=== PATIENT | male | born 1975 | race Caucasian/White ===

== ENCOUNTER 2016-10-07 10:32 | Inpatient (IN) | payer MEDICAID ==
[2016-10-07] MEDS ORDERED: fentaNYL 100 MCG/2 ML INJ IVP ONE (10:57)
--- NOTE | 2016-10-07 11:34 | EDPHY ---
H & P Stated Complaint: Right ankle injury Source: Patient, Family Exam Limitations: No limitations - Personal History Current Tetanus Diphtheria and Acellular Pertussis (TDAP): Yes - Medical/Surgical History Hx Asthma: No Hx Chronic Respiratory Disease: No Hx Diabetes: No Hx Cardiac Disease: No Hx Renal Disease: No Hx Cirrhosis: No Hx Alcoholism: No Hx HIV/AIDS: No Hx Splenectomy or Spleen Trauma: No Other PMH: Denies. - Social History Smoking Status: Never smoked HPI/ROS: CHIEF COMPLAINT: Right ankle injury, fall HISTORY OF PRESENT ILLNESS: Patient was [place] [employer] in [facility]. He says that he was running when he slipped and fell awkwardly. He not felt a sudden onset of pain in the right distal murphy and ankle. It is severe, 10/10 pain. Does not radiate. No numbness or tingling. No pain in the right foot or heel. No pain in the right knee or hip. Unable to bear weight due to the pain. EMS evaluated him, placed him in a splint and transported him. He was seen shortly after time arrival. He has no head or neck injury. No chest or back pain. No abdominal pain. No injuries to the left lower extremity or either arm. No other associated complaints or modifying factors. NPO: Coffee and light breakfast at 7:30 a.m. Social history: Lives in [place], [place]. Here for a [employer] festival. PRIOR ORTHO INJURIES: Remotely when he was young ESTABLISHED ORTHOPEDIST: None REVIEW OF SYSTEMS: Ten systems reviewed and are negative unless otherwise noted in the HPI EXAMINATION General Appearance: Alert, no distress Cardiovascular: Pulses normal throughout. Symmetric radial and DP pulses are 2 +. Brisk cap refill Neurological: A&O, sensory symmetric, strength symmetric. Normal sensation of the foot. Normal proprioception of the great toe. No footdrop. Skin: Warm and dry, no rash. No lacerations. No lesions or open appearance of the fractures. Extremities: Significant tenderness of the right distal murphy and ankle. There is no tenderness of the right midfoot or right calcaneus. No tenderness of the right knee or hip. Range of motion of the ankle not tested due to pain and deformity. Range of motion of the right hip is intact but difficult to range. Psychiatric: Mood and affect normal DIFFERENTIAL DIAGNOSES: Including but not limited to tib-fib fracture, sprain, trimalleolar fracture, bimalleolar fracture, dislocation MDM: 11:30 a.m. Distal tibial fracture that is closed in addition to a bimalleolar fracture that is also closed. Neurovascular intact with significant pain. I have consult Orthopedics. I discussed the case with Dr. Blake. He will evaluate the x-rays and return my phone call shortly. Patient remains neurovascular intact for will place a posterior splint with stirrup for stability. 12:[address] Blake has requested CT scans of the lower extremity. 12:30 p.m. I have re-evaluated the patient. He remains neurovascular intact and in a splint. CT scan are pending at this time. 1:30 p.m. Patient re-evaluated. Remains neurovascular intact. Pain persists but no acute complaints. 2:40 p.m. Patient has been evaluated by Dr. Blake. The plan is for surgical intervention and admission to his service for further care. He is admitted in stable condition. He is neurovascular intact with a splint in place on the right lower extremity. ED Precautions: Worsening pain. Erythema, edema, cyanosis, pallor, paresthesia or anesthesia. SUPERVISION: Patient was evaluated in conjunction with the supervising physician. Please see their note for details. Orthopedic consultation by telephone (Jeff García) Constitutional: Initial Vital Signs Temperature (C) 36.9 C 10/07/16 10:40 Heart Rate 58 L 10/07/16 10:40 Respiratory Rate 16 10/07/16 10:40 Blood Pressure 117/82 H 10/07/16 10:40 O2 Sat (%) 93 10/07/16 10:40 O2 Delivery Mode Nasal Cannula O2 (L/minute) 2 Allergies/Adverse Reactions: No Known Allergies Allergy (Verified 10/07/16 14:33) Home Medications: Medication Instructions Recorded Ibuprofen [Motrin (*)] 600 mg PO Q6H PRN 10/07/16 Medical Decision Making - Diagnostics Imaging Results: Imaging Impressions Ankle X-Ray 10/07/16 10:44 Impression: 1. Oblique fracture distal tibial shaft with mild displacement and angulation. 2. Complex posterior malleolar fracture distal tibia as well as rotated fracture fragment suspected off the anterior inferior corner of the tibial plafond . 3. Oblique fracture distal fibular shaft with dorsal angulation suspected. If indicated, consider CT imaging to better characterize the anatomic relations of the fractures. Tibia/Fibula X-Ray 10/07/16 10:52 Impression: 1. Oblique fracture distal tibial shaft with mild displacement and angulation. 2. Complex posterior malleolar fracture distal tibia as well as rotated fracture fragment suspected off the anterior inferior corner of the tibial plafond . 3. Oblique fracture distal fibular shaft with dorsal angulation suspected. If indicated, consider CT imaging to better characterize the anatomic relations of the fractures. Extremity CT 10/07/16 11:53 Impression: Complex fractures of the distal tibia and fibula as detailed above. Three-D images reconstructed also offered valuable visualization of the extent of the fractures. ED Course/Re-evaluation: I did not see this patient while he was in the emergency department. However his care was discussed with the PA while the patient was in the department. I agree with treatment plan and management (Maicol Cooper) - Data Points Laboratory Results: Laboratory Results 10/07/16 10:45 10/07/16 10:45 10/07/16 10/07/16 10:45 10:45 WBC 4.38 10^3/uL 10^3/uL (3.80-9.50) RBC 5.02 10^6/uL 10^6/uL (4.40-6.38) Hgb 15.2 g/dL g/dL (13.7-17.5) Hct 44.7 % % (40.0-51.0) MCV 89.0 fL fL (81.5-99.8) MCH 30.3 pg pg (27.9-34.1) MCHC 34.0 g/dL g/dL (32.4-36.7) RDW 12.6 % % (11.5-15.2) Plt Count 213 10^3/uL 10^3/uL (150-400) Sodium 141 mEq/L mEq/L (134-144) Potassium 4.3 mEq/L mEq/L (3.5-5.2) Chloride 107 mEq/L mEq/L (97-110) Carbon Dioxide 23 mEq/l mEq/l (22-31) Anion Gap 11 mEq/L mEq/L (8-16) BUN 24 mg/dL H mg/dL (7-23) Creatinine 0.9 mg/dL mg/dL (0.7-1.3) Estimated GFR > 60 Glucose 94 mg/dL mg/dL (70-100) Calcium 9.5 mg/dL mg/dL (8.5-10.4) Medications Given: Discontinued Medications Fentanyl (Sublimaze) 100 mcg IVP EDNOW ONE Stop: 10/07/16 10:58 Last Admin: 10/07/16 11:01 Dose: 100 mcg Hydromorphone HCl (Dilaudid) 1 mg IVP EDNOW ONE Stop: 10/07/16 11:54 Last Admin: 10/07/16 11:57 Dose: 1 mg Hydromorphone HCl (Dilaudid) 0.5 mg IVP EDNOW ONE Stop: 10/07/16 14:36 Last Admin: 10/07/16 14:38 Dose: 0.5 mg Departure - Departure Disposition: [facility] Inpatient Acute Clinical Impression: Closed tibial fracture Qualifiers: Encounter type: initial encounter Tibia location: shaft Fracture morphology: segmental Fracture alignment: displaced Laterality: right Qualified Code(s): S82.261A - Displaced segmental fracture of shaft of right tibia, initial encounter for closed fracture Bimalleolar ankle fracture Qualifiers: Encounter type: initial encounter Fracture type: closed Laterality: right Qualified Code(s): S82.841A - Displaced bimalleolar fracture of right lower leg , initial encounter for closed fracture Condition: Good
[2016-10-07] MEDS ORDERED: HYDROmorphONE/DILAUDID 1 MG/ML SYR IVP ONE ×2 (11:53→14:35)
[2016-10-07] MEDS ORDERED: HYDROmorphONE/DILAUDID 1 MG/ML SYR ONE (14:35)
[2016-10-07 15:41] LABS: HEMATOCRIT 44.7 % (40.0-51.0); HEMOGLOBIN 15.2 g/dL (13.7-17.5); MEAN CELL HEMOGLOBIN 30.3 pg (27.9-34.1); RED BLOOD CELL COUNT 5.02 10^6/uL (4.40-6.38); RED CELL DISTRIBUTION WIDTH 12.6 % (11.5-15.2)
--- NOTE | 2016-10-07 15:45 | PDGENHP ---
History and Physical - Chief Complaint Right ankle and leg pain - History of Present Illness 40y M ariana was at the [employer] festival and was running with his tarp to get a sitting place for the concert when he slippe don the wet grass this morning and twisted his right leg awkwardly. He had immediate pain and was unable to bear weight. He was brought to the ED at [facility] where I was consulted by the ED (Ricky) to see him. He denies any open wound and feels all his toes. History Information - Allergies/Home Medication List Allergies/Adverse Reactions: No Known Allergies Allergy (Verified 10/07/16 14:33) Home Medications: Ibuprofen [Motrin (*)] 600 mg PO Q6H PRN 10/07/16 [Last Taken Unknown] I have personally reviewed and updated: family history, medical history, social history, surgical history - Past Medical History no pertinent PMH - Surgical History Reports: no pertinent surgical hx - Family History Positive for: non-pertinent - Social History Smoking Status: Never smoked Tobacco Use: Other (None) Alcohol Use: Occasionally Drug Use: None Review of Systems ROS: 10pt was reviewed & negative except for what was stated in HPI & below Physical Exam Temp Pulse Resp BP Pulse Ox 36.6 C 49 L 16 129/87 H 99 10/07/16 14:45 10/07/16 14:45 10/07/16 14:45 10/07/16 14:45 10/07/16 14:45 O2 (L/minute) 2 Constitutional: no apparent distress Ears, Nose, Mouth, Throat: hearing normal Cardiovascular: regular rate and rhythym, edema (Mild RLE edema) Peripheral Pulses: 2+: dorsalis-pedis (R) Skin: other (No open wounds) Musculoskeletal: other (TTP at midshaft tibia) Neurologic: AAOx3, sensation intact bilaterally (SILT S/S/SP/DP/T) Lab Data & Imaging Review 10/07/16 10:45 10/07/16 10:45 WBC 4.38 10^3/uL (3.80-9.50) 10/07/16 10:45 RBC 5.02 10^6/uL (4.40-6.38) 10/07/16 10:45 Hgb 15.2 g/dL (13.7-17.5) 10/07/16 10:45 Hct 44.7 % (40.0-51.0) 10/07/16 10:45 MCV 89.0 fL (81.5-99.8) 10/07/16 10:45 MCH 30.3 pg (27.9-34.1) 10/07/16 10:45 MCHC 34.0 g/dL (32.4-36.7) 10/07/16 10:45 RDW 12.6 % (11.5-15.2) 10/07/16 10:45 Plt Count 213 10^3/uL (150-400) 10/07/16 10:45 Assessment & Plan Assessment: 40[address] M [address] p/w Right closed tibial shaft fracture and ankle fracture Bimalleolar ankle fracture (Acute) Closed tibial fracture (Acute) Plan: Plan: his soft tissues look amenable to operative fixation. At the least, we'd like to stabilize his tibial shaft soon. Ideally, we can perform both an ORIF of his ankle and the IMN of his tibia today. - We discussed the benefits of surgery including stabilization, as well as the risks of surgery, including infection, need for additoinal surgery, malunion, nonunion, long term arthritis, loss of limb, and . He understands and wishes to proceed. - We also discussed the postop course and recovery requirements, and he understands the NWB status for at least 6 weeks while his ankle recovers. - NWB RLE - Elevate RLE above heart - NPO until OR today.
[2016-10-07 15:47] LABS: ANION GAP 11 mEq/L (8-16); CALCIUM 9.5 mg/dL (8.5-10.4); CARBON DIOXIDE 23 mEq/l (22-31); CHLORIDE 107 mEq/L (97-110); CREATININE 0.9 mg/dL (0.7-1.3); GLOMERULAR FILTRATION RATE > 60; GLUCOSE 94 mg/dL (70-100); POTASSIUM 4.3 mEq/L (3.5-5.2); SODIUM 141 mEq/L (134-144)
[2016-10-07] MEDS ORDERED: ceFAZolin 2 GM/DEXTROSE 100 ML IV ONE (15:55)
[2016-10-07] MEDS ORDERED: MIDAZOLAM 2 MG/2 ML VIAL IVP ONE (15:55)
--- NOTE | 2016-10-07 15:56 | PDANEPAE ---
ANE History of Present Illness ankle ANE Past Medical History - Cardiovascular History Hx Hypertension: No Hx Arrhythmias: No Hx Chest Pain: No Hx Coronary Artery / Peripheral Vascular Disease: No Hx CHF / Valvular Disease: No Hx Palpitations: No - Pulmonary History Hx COPD: No Hx Asthma/Reactive Airway Disease: No Hx Recent Upper Respiratory Infection: No Hx Oxygen in Use at Home: No Hx Sleep Apnea: No - Endocrine History Hx Diabetes: No - Renal History Hx Renal Disorders: No - Liver History Hx Hepatic Disorders: No ANE Review of Systems - Exercise capacity METS (RN): 4 METS ANE Patient History - Allergies Allergies/Adverse Reactions: No Known Allergies Allergy (Verified 10/07/16 14:33) - Home Medications Home Medications: Ibuprofen [Motrin (*)] 600 mg PO Q6H PRN 10/07/16 [Last Taken Unknown] - NPO status NPO Since - Liquids (Date): 10/07/16 NPO Since - Liquids (Time): 08:30 NPO Since - Solids (Date): 10/07/16 NPO Since - Solids (Time): 08:00 - Anes Hx Anes Hx: no prior problems - Smoking Hx Smoking Status: Never smoked - Alcohol Use Alcohol Use: Occasionally ANE Labs/Vital Signs - Labs Result Diagrams: 10/07/16 10:45 10/07/16 10:45 - Vital Signs Blood Pressure: 119/76 Heart Rate: 42 Respiratory Rate: 14 O2 Sat (%): 100 Height: 185.42 cm Weight: 81.647 kg ANE Physical Exam - Airway Mallampati Score: Class 2 Mouth exam: normal dental/mouth exam, simon - Pulmonary Pulmonary: no respiratory distress - Cardiovascular Cardiovascular: regular rate and rhythym - ASA Status ASA Status: I
[2016-10-07] MEDS ORDERED: CEFAZOLIN 2 GM/DEXTROSE/100 ML BAG IV ONE ×2 (15:57→21:06)
[2016-10-07] MEDS ORDERED: KETOROLAC 30 MG/1 ML SDV ONE (16:00)
[2016-10-07] MEDS ORDERED: DEXAMETHASONE 4 MG/ML VIAL ONE (16:00)
[2016-10-07] MEDS ORDERED: ONDANSETRON 4 MG/2 ML VIAL ONE (16:00)
[2016-10-07] MEDS ORDERED: LIDOCAINE 2% 5 ML SDV ONE (16:00)
[2016-10-07] MEDS ORDERED: ROCURONIUM 50 MG/5 ML VIAL ONE ×3 (16:00→21:22)
[2016-10-07] MEDS ORDERED: PROPOFOL 200 MG/20 ML VIAL ONE (16:01)
[2016-10-07] MEDS ORDERED: HYDROmorphONE/DILAUDID 2 MG/ML INJ ONE (16:01)
[2016-10-07] MEDS ORDERED: LIDOCAINE 1% 300 MG/30 ML SDV ONE (16:10)
[2016-10-07] MEDS ORDERED: BUPIVACAINE 0.25% 30 ML SDV ONE (16:10)
[2016-10-07] MEDS ORDERED: MIDAZOLAM 2 MG/2 ML VIAL ONE (16:13)
[2016-10-07] MEDS ORDERED: GLYCOPYRROLATE 0.2 MG/1 ML VIAL ONE ×2 (17:04→21:23)
[2016-10-07] MEDS ORDERED: LR 500 ML IV PRN (21:44)
[2016-10-07] MEDS ORDERED: ONDANSETRON 4 MG/2 ML VIAL IVP PRN (21:44)
[2016-10-07] MEDS ORDERED: NALOXONE HCL 0.4 MG/ML INJ IVP PRN (21:44)
[2016-10-07] MEDS ORDERED: fentaNYL 100 MCG/2 ML INJ IVP PRN (21:44)
[2016-10-07] MEDS ORDERED: MEPERIDINE 25 MG/ML SYR IVP PRN (21:44)
[2016-10-07] MEDS ORDERED: ALBUTEROL 3 ML DEYVIAL IH PRN (21:44)
[2016-10-07] MEDS ORDERED: HYDROmorphONE/DILAUDID 1 MG/ML SYR IVP PRN (21:44)
[2016-10-07] MEDS ORDERED: SUGAMMADEX SODIUM 200 MG/2 ML VIAL IVP ONE (22:47)
--- NOTE | 2016-10-07 23:37 | POSTANESTH ---
Post Anesthetic Evaluation Cardiovascular Status: Normal, Stable Respiratory Status: Normal, Stable Level of Consciousness/Mental Status: Can Participate in Eval Pain Control: Adequate, Prn Tx Ordered Nausea/Vomiting Control: Adequate, Prn Tx Ordered Complications Possibly Related to Anesthesia: None Noted
[2016-10-07] MEDS ORDERED: MEPERIDINE 25 MG/ML SYR ONE (23:47)
[2016-10-07] MEDS ORDERED: fentaNYL 100 MCG/2 ML INJ ONE (23:47)
[2016-10-08] MEDS ORDERED: ONDANSETRON DISINTEGRATING 4 MG TAB PO PRN (00:40)
[2016-10-08] MEDS ORDERED: ONDANSETRON 4 MG/2 ML VIAL IVP PRN (00:40)
--- NOTE | 2016-10-08 00:57 | POSTOPPROG ---
Post Op Note Date of Operation: 10/08/16 Surgeon: Colton Blake Senior Ruby Developer: n/a Anesthesia: GET(General Endotracheal) Pre-op Diagnosis: Right ankle trimalleolar fracture and right tibial shaft fracture Post-op Diagnosis: Same Procedure: ORIF Right trimalleolar fracture, IMN of right tibial shaft fracture Inf/Abcess present in the surg proc area at time of surgery?: No
--- NOTE | 2016-10-08 01:45 | SUROPNOTE ---
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 Closed injury. On examination in ED later that same day, soft tissues still quite soft and decision made for definitive fixation after discussion of risks/benefits/postop plan. Procedure Description: After reviewing consent, the patient wished to proceed with the case. He was taken to the OR, and anesthesia induced on the stretcher. Soft tissue re- examination showed soft skin tissue with mild edema only. No fracture blisters. Lopez catheter and tourniquet placed. He was transferred to a prone position on the bed. All bony prominences padded. The right leg was prepped and draped. The leg was exsanguinated and tourniquet raised. A posterolateral incision was made at the ankle between the lateral malleolus and achilles. The skin was incised. blunt dissection did reveal the sural nerve, which was taken medially and protected. We cut through the fascia and exploited the interval between the FHL and peroneals. The posterior malleolus fracture edge was identified. There was a small comminution piece at the apex before the larger frgment involving the posterior malleolus. A medial incision was made closer to the posterior border of the medial malleolus than to the midline medial malleolus. After skin incision was performed, blunt dissection down to periosteum was done. The saphenous vein was encountered and protected. The apex of the medial malleolus was identified and dissected. The fracture line was cleared and a freer used to open the fracture plane. Irrigation was used to clean out the fracture and the fragment was then reduced and held with a K-wire. An antiglide plate was placed and the medial malleolus was fixed in place with screws (lag screws distally). The Synthes 2.0mm plate and screws were angled to minimize potential for interference with the planned IMN of the tibia later. We returned our attention to the posterior malleolus. The PTFL was transected and a freer used to follow the medial border of the fibula to clear small fragments from the syndesmosis and the lateral tibiotalar joint. A freer was used to mobilize the posterior malleolus fragment a bit. Irrigation passed through. A ball-spike was used to help reduce the posterior malleolus based on the lateral fluoroscopic view of the plafond. Once satisfied with the reduction , we held it with K-wires. A 2.4mm T-plate was reshaped into an L-plate and placed on the posterior malleolus as an antiglide plate. 2.4mm screws were used to hold the reduction and the plate in place and they were also directed to avoid the central tibial space for the IMN later. Attention was turned to the fibula. The peroneal tendons and muscle were taken medially, and the fascia incised to reveal the posterolateral and lateral surfaces of the fibula. The posterior spike of the lateral malleolus fragment was identified and defined. That fracture line was freed and irrigated. A separate medial/butterfly cortical piece was visible on fluoro, but the lateral malleolus fragment was directly reduced to the proximal fragment at correct length (checked on fluoro). Three 2.0mm lag screws were placed. A 3.5 1/3 tubular neutralization plate was placed on the lateral aspect of the fibula with 4.0 cancellous screws distally and 3.5 cortical screws proximally. The tourniquet was let down before 150 minutes had elapsed. A cotton test and external rotation test were performed, and the syndesmosis was found to be stable. The wounds were thoroughly irrigated. The PTFL was repaired with O Vicryl. The fascia was repaired with 2-O vicryl. The subcutaneous skin closed with 2-O vicryl and skin closed with 3-O nylon. The wounds were cleaned and then ioban was used to wrap the ankle and seal the incisions The drapes were taken down and the patient flipped back onto the stretcher. Then he was transferred back to the bed into a supine position. The right leg was positioned for the semi-extended IMN of the tibia. The leg and ioban were prepped and draped. The ioban was removed, and the leg was prepped again with a fresh split drape placed underneath the leg. A lateral parapatellar incision was made after exsanguinating the leg again ( over 1hour had elapsed since the tourniquet was previously released.) The fat pad space behind the patellar tendon was identified and a mild lateral release pperformed to allow the medial glide of the patella. The guide pin was placed with fluoroscopic guidance and then the entry reamer used to enter the tibial canal while remaining extra-articular. The guidewire was passed down the tibia. Traction was placed on the leg to align the tibial shaft fracture before passing the wire. The wire tip was guided down the center of the tibia to the plafond. We measured about 425mm. A series of reamers was introduced down the shaft of the tibia. Traction was placed before passing the reamers through the fracture site. We serially reamed until the 11mm reamer. A 405mm length, 10mm diameter Synthes expert nail was selected for the leg. 405mm was the longest nail here. The nail was advanced while protecting the knee capsule tissue. The interlock holes were lined up distally to avoid the ankle fracture fixation , while ensuring the proximal end of the nail was not prominent, but also not too deep. Two [id number] interlock holes were filled. The anterolateral to posteromedial distal-most interlock was also placed, taking care to protect the structures medial to the entry incision with a retractor. We back-slapped the nail to try to compress at the fracture site. We checked to ensure that the proximal nail end was not prominent. Then, we placed a single [id number] interlock screw proximally. The surgical sites were all irrigated. O-vicryl was used to repair the retinacular layer at the knee. 2-O vicryl was used to repair the subcutaneous layer. 3-O sutures were used to close the skin. A sterile dressing was applied and a short leg splint applied (soft dressing up past knee to protect parapatellar incision) The patient was woken from anesthesia. He was transferred to the PACU for further observations Count was correct at the conclusion of the case. Implants: Synthes tibial expert nail 405mm x 10mm, Synthes 2.0 and 2.4mm plates EBL: 200cc Complications: none Dispo: stable Drains: none
[2016-10-08 03:01] LABS: % IMMATURE GRANULYOCYTES 0.4 % (0.0-1.1); ABSOLUTE IMMATURE GRANULOCYTES 0.04 10^3/uL (0.00-0.10); ADD DIFF? NO; ADD MORPH? NO; ADD SCAN? NO; ATYPICAL LYMPHOCYTE FLAG 0 (0-99); FRAGMENT RBC FLAG 0 (0-99); HEMATOCRIT 44.1 % (40.0-51.0); HEMOGLOBIN 14.9 g/dL (13.7-17.5); LEFT SHIFT FLG 0 (0-99); LIPEMIA HEMOLYSIS FLAG 90 (0-99); MEAN CELL HEMOGLOBIN 30.2 pg (27.9-34.1); MEAN CELL HEMOGLOBIN CONCENTR. 33.8 g/dL (32.4-36.7); MEAN CELL VOLUME 89.3 fL (81.5-99.8); MEAN PLATELET VOLUME 9.4 fL (8.7-11.7); PLATELET CLUMPS FLAG 0 (0-99); PLATELET COUNT 223 10^3/uL (150-400); RED BLOOD CELL COUNT 4.94 10^6/uL (4.40-6.38); RED CELL DISTRIBUTION WIDTH 12.4 % (11.5-15.2)
[2016-10-08] MEDS: oxyCODONE IR 5 MG TAB PO PRN ×7 (03:04→19:53)
[2016-10-08 03:09] LABS: INR 1.08 (0.83-1.16); PROTIME(PATIENT) 13.9 SEC (12.0-15.0)
[2016-10-08 03:19] LABS: ANION GAP 14 mEq/L (8-16); CARBON DIOXIDE 23 mEq/l (22-31); CHLORIDE 104 mEq/L (97-110); CREATININE 0.7 mg/dL (0.7-1.3); GLOMERULAR FILTRATION RATE > 60; GLUCOSE 122 mg/dL (70-100); POTASSIUM 4.5 mEq/L (3.5-5.2); SODIUM 141 mEq/L (134-144)
[2016-10-08] MEDS: ceFAZolin 2 GM/DEXTROSE 100 ML IV SCH ×3 (05:12→21:35)
[2016-10-08] MEDS: ENOXAPARIN 40 MG/0.4 ML SYR SC SCH (08:04)
--- NOTE | 2016-10-08 09:13 | SOAPPROG ---
SOAP Progress Note Assessment/Plan: Assessment: 40y M ariana w Right trimalleolar ankle fracture and tibial shaft fracture now s /p ORIF R trimal and IMN Plan: - Altered foot sensation improving after tight splint loosened a bit along lateral foot/ankle. - NWB RLE - ELevate RLE above heart. Ice PRN - Remove grey - Physical Therapy today - Xrays tibia/ankle - Pain control - Potential discharge home today if PT cleared, pain reasonably controlled - Followup with me in 2 weeks (10/20 at earliest) 10/08/16 09:13 Subjective: Pain controlled. C/o some increasing lateral toe numbness since this AM. Was feeling toes well last night Objective: Vital Signs Temp Pulse Resp BP Pulse Ox 37.1 C 91 16 121/73 H 99 10/08/16 07:50 10/08/16 07:50 10/08/16 07:50 10/08/16 07:50 10/08/16 07:50 Laboratory Results 10/08/16 02:50 10/08/16 02:50 10/07/16 10/08/16 10/09/16 05:59 05:59 05:59 Intake Total 1525 200 Output Total 1225 Balance 300 200 PT 13.9 SEC (12.0-15.0) 10/08/16 02:50 INR 1.08 (0.83-1.16) 10/08/16 02:50 AxOx3. Leg elevated on pillows. CDI splint. BCRx5. +DP. Soft calf SILT DP/T. Decreased SPN sensation. Splint loosened at lateral ankle/foot, and sensation immediately improving in SPN distribution. ICD10 Worksheet Patient Problems: Problems Problem Status Onset Closed tibial fracture Acute Trimalleolar fracture of ankle, closed Acute Bimalleolar ankle fracture Acute
[2016-10-08] MEDS ORDERED: GABAPENTIN 100 MG CAP PO ONE (12:30)
[2016-10-08] MEDS: CYCLOBENZAPRINE 10 MG TAB PO PRN ×2 (12:31→20:00)
[2016-10-08] MEDS: ACETAMINOPHEN 500 MG TAB PO PRN (16:03)
--- NOTE | 2016-10-08 21:10 | SOAPPROG ---
SOAP Progress Note Assessment/Plan: Assessment: 40y M ariana w Right trimalleolar ankle fracture and tibial shaft fracture now s /p ORIF R trimal and IMN Plan: - Altered foot sensation still present. Suspect SPN neuropraxic injury present. Gabapentin started today. Tapering on. TID tomorrow. - NWB RLE - ELevate RLE above heart. Ice PRN. suggested avoiding higher knee flexion as that may compress fossa structures more - Physical Therapy today - did not clear. Will see again tomorrow - Xrays tibia/ankle - Pain control - Potential discharge home tomorrow if PT cleared, pain reasonably controlled - Followup with me in 2 weeks (10/20 at earliest) 10/08/16 21:10 Subjective: Work with PT went well overall, but potential benefit from staying another evening. Not having pain in foot, but having tingling sensations from time to time in lateral toes. Objective: Vital Signs Temp Pulse Resp BP Pulse Ox 37.1 C 69 16 116/70 94 10/08/16 19:00 10/08/16 19:00 10/08/16 19:00 10/08/16 19:00 10/08/16 19:00 Laboratory Results 10/08/16 02:50 10/08/16 02:50 10/07/16 10/08/16 10/09/16 05:59 05:59 05:59 Intake Total 1525 700 Output Total 1225 800 Balance 300 -100 PT 13.9 SEC (12.0-15.0) 10/08/16 02:50 INR 1.08 (0.83-1.16) 10/08/16 02:50 AxOx3 RLE: soft calf. CDI. Readjusted splint to ensure that no extra pressure on lateral foot/ankle. Unbent lateral slab of splint. removed some anterior and lateral webril. Equivocal SPN sensation. DP sensation to light touch intact. Plantar foot sensation intact. WWP foot with brisk cap refill x 5. Wiggling all toes. ICD10 Worksheet Patient Problems: Problems Problem Status Onset Closed tibial fracture Acute Trimalleolar fracture of ankle, closed Acute Bimalleolar ankle fracture Acute
[2016-10-09] MEDS: oxyCODONE IR 5 MG TAB PO PRN ×4 (04:40→13:02)
[2016-10-09] MEDS: ACETAMINOPHEN 500 MG TAB PO PRN ×3 (04:40→13:02)
[2016-10-09] MEDS: ceFAZolin 2 GM/DEXTROSE 100 ML IV SCH (04:42)
[2016-10-09 07:59] VITALS: BP 122/75; PULSE 77; RESP 14; TEMP 99.2; O2SAT 96
[2016-10-09] MEDS: ENOXAPARIN 40 MG/0.4 ML SYR SC SCH (08:17)
[2016-10-09] MEDS ORDERED: GABAPENTIN 100 MG CAP PO SCH (09:00)
--- NOTE | 2016-10-09 19:40 | PDDCSUM ---
Discharge Summary Discharge Summary: Discharge Summary Date of Admit: 10/07/16 Date of Discharge: 10/09/16 Attg: Colton Blake Admitting Dx: Right ankle trimalleolar fracture and Right tibial shaft fracture Procedures: ORIF R ankle, IMN Right tibial shaft HPI: 40[address] M [address] p/w R ankle and tibial shaft fractures after falling while running to grab an audience spot [place] the [employer]. Hospital Course: Patient was initially seen in the OR. Soft tissue exam was promising, and patient taken to the OR for ORIF of trimalleolar ankle and intramedullary nailing of tibial shaft fracture. He was admitted to the floor afterwards for pain control, PT, and rest. He complained of some mild lateral foot numbness postop which responded wel to splint loosening, leg extension, and elevation. He was also noting thigh spasms and was started on muscle relaxants. He passed PT on 10/09/2016 and was discharged home in his short leg splint with nonweightbearing restrictions to the Right leg. Followup: [address] Blake Disposition: Stable Diet: Regular Discharge Meds: Tylenol PRN, oxycodone PRN, ondansetron PRN, ASA x 21d, Senokot -S PRN, [place] backup Instructions: - Keep RLE elevated at rest - NWB RLE - Take medications as directed - call if sustained fever >100.4 or increasing pain uncontrolled by medications - keep splint clean and dry
== END 2016-10-09 13:30 | disposition home or self-care (01) | DRG 493 ==
LOC: OBSVTOIN 14:25 → F3N 10-08 00:38 → INTOOBSV 10-08 03:50 → OBSVTOIN 10-08 03:50
PROVIDERS: ADMIT Orthopaedic Surgery; ATTEND Orthopaedic Surgery
PROC: 0QSG04Z Reposition Right Tibia with Internal Fixation Device, Open Approach (ICD-10-PCS; principal; 2016-10-07 16:00)
PROC: 0QSJ04Z Reposition Right Fibula with Internal Fixation Device, Open Approach (ICD-10-PCS; principal; 2016-10-07 16:00)
PROC: 0QSG06Z Reposition Right Tibia with Intramedullary Internal Fixation Device, Open Approach (ICD-10-PCS; principal; 2016-10-07 16:00)
DX: S82.851A Displaced trimalleolar fracture of right lower leg, initial encounter for closed fracture (principal); S82.291A Other fracture of shaft of right tibia, initial encounter for closed fracture; W01.0XXA Fall on same level from slipping, tripping and stumbling without subsequent striking against object, initial encounter; Y92.89 Other specified places as the place of occurrence of the external cause
CPT/HCPCS: 96374; 97116-GP; 97161-GP; 97165-GO; 97530-GP; C1713; C1769; J0690; J1100; J1170; J1650; J1885; J2250; J2405; J2704; J3010